=== PATIENT | female | born 1965 | race Caucasian/White ===

== ENCOUNTER → 2022-10-29 09:57 | Outpatient (BNVA) | payer BC, MEDICAID, SELFPAY | PROVIDERS: PCP Nurse Practitioner Family; Referring Provider Nurse Practitioner Family; Visit Provider Psychiatry & Neurology Neurology | DX: R41.9 Unspecified symptoms and signs involving cognitive functions and awareness (principal); R29.818 Other symptoms and signs involving the nervous system; R51.9 Headache, unspecified; R41.3 Other amnesia; R29.2 Abnormal reflex; R10.9 Unspecified abdominal pain | CPT/HCPCS: 36415; 80053; 81241; 82306; 82746; 83090; 83735; 83921; 84155; 84165; 84439; 84443; 84481; 85025; 85210; 85300; 85303; 85306; 85651; 86140; 86146; 86147; 86160; 86162; 86235; 86255; 86334; 86376; 86431; 86592; 86780 ==